=== PATIENT | male | born 1990 | race Caucasian/White ===

== ENCOUNTER 2024-09-19 10:23 | Outpatient (CLI) | payer OTHER, SELFPAY ==
--- NOTE | ~2024-09-19 | CT_ITS ---
EXAMINATION: CT soft tissue neck w con DATE: 09/19/2024 10:49 INDICATION: Idiopathic globus. TECHNIQUE: Computed tomography (CT) of the neck was performed with 75 mL Omnipaque-350 intravenous co ntrast. Automated exposure control and iterative reconstruction technique were employed. The dose-tushar gth product was 469.92 mGy-cm. COMPARISON: None FINDINGS: Calcified mediastinal lymph nodes are consistent with old granulomatous disease. There are calcifications in the palatine tonsils. There is mild mucosal thickening in left maxillary sinus. The mastoid air cells are normal. There is mild cervical spondylosis. IMPRESSION: 1. No etiology for the patient's symptoms. Reviewed, dictated and finalized at location A. D SERVICES ANALYST
== END 2024-09-19 10:24 | disposition home or self-care (01) ==
LOC: MICIMG 10:26
PROVIDERS: PCP Family Medicine; Visit Provider Family Medicine
DX: F45.8 Other somatoform disorders (principal)
CPT/HCPCS: 70491; Q9967